=== PATIENT | female | born 1960 | race Caucasian/White ===

== ENCOUNTER 2021-10-06 09:03 | Emergency (ER) | payer OTHER ==
[2021-10-06] MEDS ORDERED: Fluorescein Opthalmic Strip ONE (09:24)
[2021-10-06] MEDS ORDERED: Tetracaine 0.5% PF 4 ML BOT ONE (09:24)
== END 2021-10-06 09:42 | disposition home or self-care (01) ==
LOC: BURERS 09:03
DX: S05.02XA Injury of conjunctiva and corneal abrasion without foreign body, left eye, initial encounter (principal); H11.32 Conjunctival hemorrhage, left eye; W20.8XXA Other cause of strike by thrown, projected or falling object, initial encounter
CPT/HCPCS: 99283

== ENCOUNTER 2022-05-23 10:23 | Outpatient (CLI) | payer OTHER | END 2022-05-23 10:24 | disposition home or self-care (01) | LOC: BURRAD 10:23 | PROVIDERS: ATTEND Nurse Practitioner | DX: R05.3 Chronic cough (principal) | CPT/HCPCS: 71046 ==